=== PATIENT | female | born 1965 | race Caucasian/White ===

== ENCOUNTER 2016-07-21 20:05 | Emergency (ER) | payer MEDICAID ==
[~2016-07-21] VITALS: Ht 170.2 cm; Wt 65.8 kg
[2016-07-21 20:41] VITALS: BP 116/70
== END 2016-07-21 22:56 | disposition home or self-care (01) ==
LOC: ER 20:05
DX: J40 Bronchitis, not specified as acute or chronic (principal); F17.210 Nicotine dependence, cigarettes, uncomplicated